=== PATIENT | female | born 1965 | race Caucasian/White ===

== ENCOUNTER → 2017-02-15 | Outpatient (CLI) | payer BC ==
[~2017-02-15] MED LIST: OMEGA COMPLEX PO; [UNRECOGNIZED DRUG - CODE]; [UNRECOGNIZED DRUG - OTHER]; [UNRECOGNIZED DRUG - OTHER]; [UNRECOGNIZED DRUG - OTHER]; [UNRECOGNIZED DRUG - OTHER]
[2017-02-15 08:01] LABS: BUN 16 mg/dl (7-24); CREATININE 0.89 mg/dL (0.55-1.02)
== END | disposition home or self-care (01) ==
LOC: LAB 07:34 → CT 08:00
PROVIDERS: Family Medicine
DX: R91.1 Solitary pulmonary nodule (principal); E78.00 Pure hypercholesterolemia, unspecified; E11.9 Type 2 diabetes mellitus without complications; E10.9 Type 1 diabetes mellitus without complications; D64.9 Anemia, unspecified; R53.83 Other fatigue; R74.8 Abnormal levels of other serum enzymes; M25.50 Pain in unspecified joint; R10.84 Generalized abdominal pain; R39.198 Other difficulties with micturition; T14.90 Injury, unspecified; N92.6 Irregular menstruation, unspecified

== ENCOUNTER 2022-11-05 18:21 | Emergency (ER) | payer BC ==
[~2022-11-05] VITALS: Ht 172.7 cm; Wt 64.4 kg
[2022-11-05 18:52] LABS: BASO % 0.4 % (0.0-1.0); EOS # 0.2 10*3/uL (0.0-0.4); EOS % 2.5 % (1.0-4.0); LYMPH # 2.6 10*3/uL (1.3-4.4); LYMPH % 29.1 % (27.0-41.0); MEAN CELL VOLUME 94.8 fl (81.0-99.0); MEAN CORPUSCULAR HGB 32.1 pg (27.0-31.0); MEAN CORPUSCULAR HGB CONC 33.8 g/dl (33.0-37.0); MEAN PLATELET VOLUME 10.8 fl (9.6-12.3); MONO # 0.6 10*3/uL (0.1-1.0); MONO % 6.1 % (3.0-9.0); NEUT # 5.6 10*3/uL (2.3-7.9); NEUT % 61.6 % (47.0-73.0); PLATELET COUNT AUTOMATED 209 10*3/uL (130-400); RED BLOOD COUNT 4.43 10*6/uL (4.10-5.10); RED CELL DISTRI WIDTH 12.7 % (0-14.5)
[2022-11-05 19:03] LABS: ACT PARTIAL THROMBO TIME 27.8 SECONDS (20.0-32.1)
[2022-11-05 19:13] LABS: ALKALINE PHOSPHATASE 65 U/L (46-116); BUN 16 mg/dl (9-23); CHLORIDE 108 mmol/L (98-107); LIPASE 97 U/L (12-53); POTASSIUM 3.8 mmol/L (3.4-5.1); SGPT/ALT 16 U/L (10-49); TOTAL PROTEIN 6.2 gm/dL (6.0-8.0)
[2022-11-05] MEDS ORDERED: ZITHROMAX250 MG PO ×2 (21:04)
[2022-11-05] MEDS ORDERED: PREDNISONE20 M1 PO ×2 (21:04)
== END 2022-11-05 21:32 | disposition home or self-care (01) ==
LOC: ED 18:21
PROVIDERS: Emergency Medicine
DX: J40 Bronchitis, not specified as acute or chronic (principal); R07.89 Other chest pain; N18.31 Chronic kidney disease, stage 3a; Z91.040 Latex allergy status; Z98.890 Other specified postprocedural states

== ENCOUNTER → 2023-01-10 | Day surgery (SDC) | payer BC ==
[~2023-01-10] VITALS: Ht 170.1 cm; Wt 59.0 kg
[~2023-01-10] MED LIST changes: +AUGMENTIN 500500 M1 PO; +DIFLUCAN150 MG PO; +HYDROCODONE-AC1 EAC1 PO; +PREDNISONE20 M1 PO; +PROTONIX TR40 M1 PO; +ZITHROMAX250 MG PO
[2023-01-10 06:30] VITALS: BP 105/56
[2023-01-10 07:57] VITALS: BP 85/45
[2023-01-10 08:27] VITALS: BP 101/55
== END ==
LOC: SDC 01-06 08:00
PROVIDERS: ATTEND Surgery
DX: Z12.11 Encounter for screening for malignant neoplasm of colon (principal); K29.50 Unspecified chronic gastritis without bleeding; K62.1 Rectal polyp; K57.90 Diverticulosis of intestine, part unspecified, without perforation or abscess without bleeding; Z87.11 Personal history of peptic ulcer disease; Z87.891 Personal history of nicotine dependence; Z98.890 Other specified postprocedural states

== ENCOUNTER → 2024-11-10 | Outpatient (CLI) | payer OTHER ==
[~2024-11-10] MED LIST changes: +IOHEXOL 300 MG/ML 100 ML VIAL IV ONE
== END | disposition home or self-care (01) ==
LOC: CT 11-09 09:00
PROVIDERS: ATTEND Family Medicine
DX: R91.8 Other nonspecific abnormal finding of lung field (principal); J43.9 Emphysema, unspecified